=== PATIENT | male | born 1940 | race Caucasian/White ===

== ENCOUNTER → 2017-12-30 | Outpatient (REF) ==
[~2017-12-30] MED LIST: ASPIR-LOW81 MG PO; FOLIC ACID1 MG PO; LISINOPRIL10 MG PO; LORATADINE10 MG PO; LORTAB 5/500 501 TAB PO; METHOTREXA2.5 MG/TAB PO; MVI PO; PRILOSEC 20MG20 MG PO; TYLENOL 500MG500 MG PO; VYTORIN PO; ZITHROMAX500 MG PO
== END ==
LOC: ZLAB.WCH 14:23
DX: Z01.89 Encounter for other specified special examinations (principal)

== ENCOUNTER 2018-01-20 08:05 | Day surgery (SDC) | payer MEDICARE ==
[~2018-01-20] VITALS: Ht 185.4 cm; Wt 106.2 kg
[2018-01-20 08:26] VITALS: BP 128/83; PULSE 63; TEMP 98
[2018-01-20] MEDS ORDERED: ASPIRIN 81M81 MG/TA2 PO (08:30)
[2018-01-20] MEDS ORDERED: EFFEXOR 75M75 MG/TAB PO (08:31)
[2018-01-20] MEDS ORDERED: ALEVE 220MG220 MG PO (08:31)
[2018-01-20] MEDS ORDERED: FOLIC ACID 11 MG/TA1 PO (08:32)
[2018-01-20] MEDS ORDERED: PRINIVIL20 MG PO (08:32)
[2018-01-20] MEDS ORDERED: METHOTREXA2.5 MG/TAB INJ (08:33)
[2018-01-20 10:18] VITALS: BP 121/65; PULSE 55; TEMP 98.3
[2018-01-20 10:30] VITALS: BP 92/61; PULSE 54
[2018-01-20 10:45] VITALS: BP 116/68; PULSE 47
[2018-01-20 11:00] VITALS: BP 124/65; PULSE 53
[2018-01-20 11:15] VITALS: BP 125/68; PULSE 51
== END 2018-01-20 11:37 | disposition home or self-care (01) ==
LOC: SDCO 08:05
DX: Z12.11 Encounter for screening for malignant neoplasm of colon (principal); D12.8 Benign neoplasm of rectum; I10 Essential (primary) hypertension; R01.1 Cardiac murmur, unspecified
CPT/HCPCS: OP; J2250; J3010; J7030